=== PATIENT | male | born 1940 | race American Indian/Alaskan Native ===

== ENCOUNTER 2024-03-28 21:22 | Emergency (ER) | payer OTHER ==
[~2024-03-28] VITALS: Ht 165.1 cm; Wt 76.2 kg
[2024-03-28 21:35] VITALS: BP_SYST 101; PULSE 67; RESP 18; TEMP 97.9; O2SAT 97
[2024-03-28 22:17] LABS: BASOPHILS % (AUTO) 0.4 % (0.0-2.0); EOSINOPHILS # (AUTO) 0.3 K/uL (0.0-0.4); HEMATOCRIT 32.3 % (36-54); LYMPHOCYTES # (AUTO) 1.4 K/uL (1.0-5.5); LYMPHOCYTES % (AUTO) 17.8 % (20.5-51.5); MEAN CORPUSCULAR HEMOGLOBIN 29 pg (27-31); MEAN CORPUSCULAR HGB CONC 34 % (32-36); MEAN CORPUSCULAR VOLUME 85 fL (79.0-98.0); MONOCYTES # (AUTO) 0.6 K/uL (0.0-1.0); MONOCYTES % (AUTO) 7.6 % (1.7-9.3); NEUTROPHILS # (AUTO) 5.6 K/uL (1.8-7.7); NEUTROPHILS % (AUTO) 70.2 % (40.0-70.0); PLATELET COUNT (AUTO) 214 K/uL (130-430); RED BLOOD CELL COUNT(AUTO) 3.78 MIL/uL (4.2-6.2); RED CELL DISTRIBUTION WIDTH 16.8 % (9.0-15.0)
[2024-03-28 22:34] LABS: ALANINE AMINOTRANSFERASE 35 U/L (12-78); ALBUMIN 2.8 g/dL (3.4-4.8); ANION GAP 7 (5-15); ASPARTATE AMINOTRANSFERASE 15 U/L (10-37); BILIRUBIN,DIRECT 0.2 mg/dL (0.0-0.3); CALCIUM 9.1 mg/dL (8.4-11.0); CARBON DIOXIDE 27 mmol/L (23-29); CHLORIDE 100 mmol/L (98-107); CREATININE 1.04 mg/dL (0.55-1.30); GLUCOSE 166 mg/dL (74-106); POTASSIUM 3.9 mmol/L (3.5-5.1); SODIUM SERUM 134 mmol/L (136-145); TOTAL BILIRUBIN 0.8 mg/dL (0.0-1.0); TOTAL PROTEIN, SERUM 6.4 g/dL (6.4-8.3); UREA NITROGEN, BLOOD 17 mg/dL (8-21)
[2024-03-28] MEDS: NACL 0.9% 1,000 ML IV ONE (23:09)
[2024-03-28] MEDS ORDERED: CEFEPIME 1 GM/VIAL (MAXIPIME) ONE ×2 (23:14)
[2024-03-28] MEDS: CEFEPIME 1 GM in D5W 50 ML IV ONE (23:15)
[2024-03-29 00:38] LABS: BILIRUBIN,URINE NEGATIVE (NEGATIVE); BLOOD, URINE NEGATIVE (NEGATIVE); CLARITY/URINE CLEAR (CLEAR); COLOR,URINE ORANGE (YELLOW); GLUCOSE,URINE TRACE (NEGATIVE); KETONES,URINE TRACE (NEGATIVE); LEUKOCYTE ESTERASE ,URINE NEGATIVE (NEGATIVE); PROTEIN URINE 2+ (NEGATIVE)
[2024-03-29 01:01] LABS: NITRITE, URINE NEGATIVE (NEGATIVE); UROBILINOGEN,URINE >=8 (0.2-1.0)
[2024-03-29 01:02] LABS: BACTERIA,URINE None Seen /HPF (None Seen); RBC,URINE 0-3 /HPF (0-3); WBC,URINE 0-3 /HPF (0-3)
[2024-03-29] MEDS ORDERED: DORZ10DR10 EACH EYE (02:17)
[2024-03-29] MEDS ORDERED: DONE5TAB33 PO (02:17)
[2024-03-29] MEDS ORDERED: LATA2.5D14 EACH EYE (02:17)
[2024-03-29] MEDS ORDERED: ATOR-1 PO (02:17)
[2024-03-29] MEDS ORDERED: PANT40TA45 PO (02:17)
[2024-03-29] MEDS ORDERED: ISOS30TA85 PO (02:17)
[2024-03-29] MEDS ORDERED: METH-374 PO (02:17)
[2024-03-29] MEDS ORDERED: SUCR1TAB2 PO (02:17)
[2024-03-29] MEDS ORDERED: SITA50TA3 PO (02:17)
[2024-03-29] MEDS ORDERED: GLIP10TA11 PO (02:17)
[2024-03-29] MEDS ORDERED: BRI.2% BOTH EYES (02:17)
[2024-03-29] MEDS ORDERED: METF750T46 PO (02:17)
[2024-03-29] MEDS ORDERED: TAMS-11 PO (02:21)
[2024-03-29] MEDS ORDERED: NEU100 PO (02:21)
[2024-03-29] MEDS ORDERED: ASPI-1155 PO (02:21)
[2024-03-29 16:09] VITALS: BP_SYST 126; PULSE 52; RESP 18; TEMP 96.8; O2SAT 99
== END 2024-03-29 16:07 | disposition home or self-care (01) ==
LOC: SED 21:22
DX: R33.9 Retention of urine, unspecified (principal); R42 Dizziness and giddiness
CPT/HCPCS: 36415; 70450-TC; 71045; 80048; 80076; 81000; 81001; 81015; 82948; 83605; 85025; 87040; 93005; 96365; 97530-GP; 99285; J0692